=== PATIENT | male | born 1925 | race Caucasian/White ===

== ENCOUNTER → 2017-01-28 | Outpatient (CLI) | payer MEDICARE, BC ==
[~2017-01-28] MED LIST: ANTIVERT12.5 MG PO; FINASTERIDE5 MG PO; LOSARTAN POTAS100 MG PO; MEDROL 4MG. DOSE4 MG PO; METFORMIN500 MG PO; MULTI-VITAMIN1 EACH PO; NAPROXEN SODIU500 MG PO; PANTOPRAZOLE SO40 M1 PO; PHENERGAN 25MG.25 M1 PO; PHENERGAN 25MG.25 MG PR; RANITIDINE HCL150 MG PO; TERAZOSIN5 MG PO; ZOLPIDEM 10MG T10 MG PO
[2017-01-28 17:07] LABS: BUN 20 mg/dL (7-18)
[2017-01-28 17:13] LABS: GFR (ESTIMATED) 52 ML/MIN (>60)
== END ==
LOC: LAB 14:02
PROVIDERS: Internal Medicine Cardiovascular Disease
DX: R60.0 Localized edema (principal)

== ENCOUNTER → 2017-04-02 | Outpatient (CLI) | payer MEDICARE, BC ==
[2017-04-02 13:06] LABS: BUN 22 mg/dL (7-18)
[2017-04-02 13:16] LABS: GFR (ESTIMATED) 44 ML/MIN (>60)
== END ==
LOC: LAB 11:45
PROVIDERS: Internal Medicine Cardiovascular Disease
DX: R60.0 Localized edema (principal)